=== PATIENT | male | born 1965 | race African-American/Black ===

== ENCOUNTER 2024-02-24 17:14 | Inpatient (IN) | payer MEDICARE ==
[~2024-02-24] VITALS: Ht 175.3 cm; Wt 85.7 kg
[2024-02-24 18:25] VITALS: TEMP 97.2
[2024-02-24 19:05] LABS: BASOPHILS # (AUTO) 0.1 (0.0-0.1); BASOPHILS % 0.8 % (0.0-1.0); EOSINOPHILS # (AUTO) 0.1 (0.0-0.4); EOSINOPHILS % 1.1 % (0.0-6.0); HEMATOCRIT 43.5 % (38.2-49.6); HEMOGLOBIN 13.6 g/dL (14.0-18.0); LYMPHOCYTES # (AUTO) 2.1 (1.0-3.2); LYMPHOCYTES % 33.6 % (18.0-39.1); MEAN CORPUSCULAR HEMOGLOBIN 27.8 pg (28-32); MEAN CORPUSCULAR HGB CONC 31.3 g/dL (31-35); MONOCYTES # (AUTO) 0.5 (0.2-0.8); NEUTROPHILS # (AUTO) 3.5 (2.1-6.9); PLATELET COUNT 213 x10e3/uL (140-360); RED BLOOD COUNT 4.89 x10e6/uL (4.3-5.7); RED CELL DISTRIBUTION WIDTH 21.1 % (11.7-14.4); WHITE BLOOD COUNT 6.28 x10e3/uL (4.8-10.8)
[2024-02-24 19:13] LABS: INR 1.03; PARTIAL THROMBOPLASTIN TIME 26.8 seconds (23.8-35.5); PROTHROMBIN TIME 14.1 seconds (11.9-14.5)
[2024-02-24 19:22] LABS: ALBUMIN/GLOBULIN RATIO 1.2 (0.8-2.0); ANION GAP 16.1 mmol/L (8-16); BILIRUBIN,TOTAL 0.8 mg/dL (0.2-1.2); CALCIUM 9.7 mg/dL (8.4-10.2); CREATININE, SERUM 1.4 mg/dL (0.72-1.25); POTASSIUM 4.1 mmol/L (3.5-5.1); TOTAL PROTEIN 7.3 g/dL (6.5-8.1)
[2024-02-24] MEDS: SODIUM CHLORIDE 0.9% 1000ML 1,000 ML IV ONE (19:32)
[2024-02-24] MEDS ORDERED: SODIUM CHLORIDE 0.9% 100 ML ONE (19:53)
[2024-02-24] MEDS ORDERED: IOPAMIDOL 370 MG/ML 100 ML INFUS..BTL INJ ONE (19:53)
[2024-02-24 22:53] LABS: BILIRUBIN,URINE NEGATIVE (NEGATIVE); CLARITY,URINE CLEAR (CLEAR); COLOR,URINE YELLOW (YELLOW); GLUCOSE, URINE >=1000 (NEGATIVE); KETONES,URINE NEGATIVE (NEGATIVE); LEUKOCYTE ESTERASE ,URINE NEGATIVE (NEGATIVE); NITRITE,URINE NEGATIVE (NEGATIVE); PH,URINE 6 (5 - 7); PROTEIN,URINE DIPSTICK NEGATIVE (NEGATIVE); URINE UROBILINOGEN 0.2 mg/dL (0.2 - 1)
[2024-02-24] MEDS ORDERED: DEXTROSE 50% SYRINGE 50 ML IV PRN (23:00)
[2024-02-24] MEDS ORDERED: ONDANSETRON HCL INJ 2MG/ML 2ML 2 MG/ML VIAL IV PRN (23:00)
[2024-02-24 23:15] LABS: BACTERIA,URINE FEW /HPF; EPITHELIAL CELLS,URINE FEW /LPF; WBC,URINE (MAN) 0-5 /HPF (0-5)
[2024-02-24 23:29] VITALS: PULSE 71; RESP 14
[2024-02-25] VITALS (17 sets, daily range): BP systolic 93–125; BP diastolic 58–86; PULSE 59–77; RESP 12–19; TEMP 97.7–98.5; O2SAT 94–100
[2024-02-25] MEDS: SODIUM CHLORIDE 0.9% 1000ML 1,000 ML IV ONE (01:11)
[2024-02-25] MEDS: MUPIROCIN 2% OINT 22 GM TUBE TOP SCH (01:11)
[2024-02-25] MEDS ORDERED: LIPITOR20 MG PO (01:19)
[2024-02-25] MEDS ORDERED: FLOMAX0.4 MG PO (01:19)
[2024-02-25] MEDS ORDERED: JARDIANCE25 MG PO (01:19)
[2024-02-25] MEDS ORDERED: LISINOPRIL5 MG PO (01:19)
[2024-02-25] MEDS ORDERED: SPIRONOLACTONE25 MG PO ×2 (01:19→14:28)
[2024-02-25] MEDS ORDERED: FUROSEMIDE40 MG PO ×2 (01:19→14:28)
[2024-02-25] MEDS ORDERED: METOPROLOL SUCC50 MG PO (01:19)
[2024-02-25] MEDS ORDERED: AMIODARONE HCL200 MG PO (01:19)
[2024-02-25] MEDS ORDERED: MORPHINE SULFAT30 M2 PO (01:42)
[2024-02-25] MEDS ORDERED: HYDROCODON-ACE1 EAC9 PO (01:42)
[2024-02-25 03:46] LABS: TROPONIN I 0.018 ng/mL (0-0.300)
[2024-02-25] MEDS ORDERED: HYDROCODONE/APAP 5MG-325MG TAB PO PRN (05:15)
[2024-02-25] MEDS ORDERED: ACETAMINOPHEN 325 MG TAB PO PRN (05:15)
[2024-02-25] MEDS: Morphine 2mg Syringe 2 MG/ML SYR IV PRN (05:25)
[2024-02-25 06:51] LABS: BASOPHILS # (AUTO) 0.1 (0.0-0.1); BASOPHILS % 0.9 % (0.0-1.0); EOSINOPHILS # (AUTO) 0.1 (0.0-0.4); EOSINOPHILS % 1.6 % (0.0-6.0); HEMATOCRIT 38.2 % (38.2-49.6); HEMOGLOBIN 12.1 g/dL (14.0-18.0); LYMPHOCYTES # (AUTO) 1.9 (1.0-3.2); LYMPHOCYTES % 33.8 % (18.0-39.1); MEAN CORPUSCULAR HEMOGLOBIN 28.1 pg (28-32); MEAN CORPUSCULAR HGB CONC 31.7 g/dL (31-35); MEAN CORPUSCULAR VOLUME 88.8 fL (81-99); MONOCYTES # (AUTO) 0.5 (0.2-0.8); MONOCYTES % 9.1 % (4.4-11.3); NEUTROPHILS % 54.1 % (38.7-80.0); PLATELET COUNT 168 x10e3/uL (140-360); RED CELL DISTRIBUTION WIDTH 21.2 % (11.7-14.4)
[2024-02-25 07:21] LABS: ALBUMIN 3.3 g/dL (3.5-5.0); ALBUMIN/GLOBULIN RATIO 1.1 (0.8-2.0); ANION GAP 12.8 mmol/L (8-16); BILIRUBIN,TOTAL 0.8 mg/dL (0.2-1.2); CALCIUM 9.1 mg/dL (8.4-10.2); CHOL/HDL RATIO 3.5 (3.9-4.7); CREATININE, SERUM 0.84 mg/dL (0.72-1.25); POTASSIUM 3.8 mmol/L (3.5-5.1); TOTAL PROTEIN 6.3 g/dL (6.5-8.1)
[2024-02-25 07:28] LABS: TROPONIN I 0.019 ng/mL (0-0.300)
[2024-02-25] MEDS ORDERED: BISACODYL 10 MG SUPP PR PRN (08:00)
[2024-02-25 08:42] LABS: FERRITIN 131.29 ng/mL (21.81-274.66); THYROID STIMULATING HORMONE 0.413 uIU/mL (0.350-4.940)
[2024-02-25] MEDS: SENNOSIDES 8.6 MG TAB PO SCH (08:58)
[2024-02-25] MEDS: DOCUSATE SODIUM 100 MG CAP PO SCH (08:58)
[2024-02-25 09:04] LABS: ANISOCYTOSIS MODERATE; LYMPHOCYTES % (MANUAL) 38 % (19-48); MONOCYTES % (MANUAL) 7 % (3.4-9.0); NEUTROPHILS % (MANUAL) 55 % (40-74); PLATELET ESTIMATE ADEQUATE; PLATELET MORPHOLOGY COMMENT NORMAL; RBC MORPHOLOGY COMMENT ABNORMAL
[2024-02-25] MEDS: INSULIN REGULAR, HUMAN 100 UNIT/1 ML SQ SCH (12:36)
[2024-02-25] MEDS ORDERED: ENOXAPARIN SOD INJ 40 MG/0.4 ML SYR SC SCH (17:00)
== END 2024-02-25 15:52 | disposition home or self-care (01) | DRG 683 ==
LOC: ER 18:49 → ERHOLD 23:21 → ICU 02-25 00:19 → IMCU 02-25 00:21 → ICU 02-25 00:23
PROVIDERS: ADMIT Internal Medicine; ATTEND Internal Medicine
DX: N17.9 Acute kidney failure, unspecified (principal); I42.8 Other cardiomyopathies; I11.0 Hypertensive heart disease with heart failure; I50.22 Chronic systolic (congestive) heart failure; E86.0 Dehydration; I49.5 Sick sinus syndrome; E78.2 Mixed hyperlipidemia; E11.9 Type 2 diabetes mellitus without complications; I95.9 Hypotension, unspecified; K59.00 Constipation, unspecified; R07.9 Chest pain, unspecified; T50.2X5A Adverse effect of carbonic-anhydrase inhibitors, benzothiadiazides and other diuretics, initial encounter; Z79.84 Long term (current) use of oral hypoglycemic drugs; Z79.891 Long term (current) use of opiate analgesic; Z95.810 Presence of automatic (implantable) cardiac defibrillator; Z85.040 Personal history of malignant carcinoid tumor of rectum; Z85.038 Personal history of other malignant neoplasm of large intestine
CPT/HCPCS: 36415; 71275; 74174; 80053; 80061; 81001; 82550; 82607; 82728; 82948; 83036; 83540; 83605; 84443; 84466; 84484; 85025; 85610; 85730; 86850; 86900; 87040; 93005; 93306; 99252; 99284; J2270; J7030; J7050; Q9967